=== PATIENT | male | born 1970 | race Caucasian/White ===

== ENCOUNTER 2017-01-11 07:25 | Day surgery (SDC) | payer MEDICARE, OTHER ==
[~2017-01-11 07:25] MED LIST: LACTATED RINGERS 1,000 ML IV SCH; LIDOCAINE 1% 20 ML VIAL (10MG/ML) FOR IV START INTRADERMA PRN
[2017-01-11 07:54] VITALS: TEMP 97.9
[2017-01-11 08:02] LABS: Glucose,Whole Blood 85 mg/dL (75-99)
[2017-01-11] MEDS ORDERED: PROPOFOL 10 MG/ML 20 ML VIAL IV ONE (09:05)
[2017-01-11] MEDS ORDERED: ePHEDrine 50 MG/ML 1 ML AMP ONE (09:05)
[2017-01-11] MEDS ORDERED: LACTATED RINGERS 1,000 ML IV ONE (09:39)
--- NOTE | 2017-01-11 09:55 | P.PCN ---
Date of Procedure: 01/11/17 Procedure(s) Performed: Procedures: 1. Esophagogastroduodenoscopy and biopsy. 2. Colonoscopy and polypectomy. Preoperative diagnosis: Dysphagia and change in bowel habits. Postoperative diagnosis: 1. Small sliding hiatal hernia with no obvious esophagitis or complicated reflux disease. 2. Gastritis. 3. Multiple colon polyps snared but no large polyps or cancer. Preparation: HalfLytely prep. Sedation: Was provided by anesthesia Brief clinical history: The patient is a 46-year-old male who is referred for this evaluation because of issues with dysphagia and change in bowel habits. The patient was diagnosed in July 2016 with head and neck cancer for which he received chemotherapy and radiation therapy which was completed the first week of October 2016. The patient has been having issues swallowing as well as dry mouth secondary to the radiation. He lost a total of 75 pounds. He had issues with change in bowel habits, in part related to his inability to eat. This evaluation is to assess for radiation esophageal strictures or other pathology and colon neoplasia or other pathology. Procedure: With the patient on his left lateral decubitus position and after informed consent and adequate sedation, I passed the Olympus-GIF 160 video upper endoscope through the cricopharyngeus down the esophagus. GE junction was around 40-41 cm from the incisors and there was a very small sliding hiatal hernia. There was no obvious esophagitis or strictures. No exudates or other pathology to account for his symptoms. The endoscope was then passed into the stomach which was insufflated with air and inspected in detail including the retroflex view in the cardia. There was mottling and erythema as well as some friability, most obvious in the antrum, but no ulcers or erosions. Pyloric channel did not show any ulcers. Duodenal bulb, post bulbar area and descending duodenum showed minimal erythema. I obtained multiple biopsies from the duodenum, antrum and esophagus then the endoscope was withdrawn and I proceeded with the colonoscopy. Perianal area did not show any fissures or fistulas. There were no masses felt on digital rectal examination. The Olympus CFQ 160L video colonoscope was then inserted in the rectum in the usual fashion and advanced to the cecum. There were multiple small polyps, around 10 total, which were snared and fulgurated. One was in the right colon and 2 in the distal sigmoid and the remainder where in the proximal sigmoid. All retrieved polyps were sent to pathology. No large polyps or cancer. No obvious diverticular disease or other pathology. I retroflexed endoscope in the rectum before the endoscope was withdrawn. The patient tolerated the procedure well. Plan: The patient was reassured. Will await pathology results. I anticipate repeating his colonoscopy in 3 years. He will follow up with you as planned and I will be happy to see in the office if his symptoms persist.
[2017-01-11 10:03] VITALS: BP 116/82; PULSE 93; RESP 18
== END 2017-01-11 10:32 | disposition home or self-care (01) ==
LOC: ORWHC2ENDO 07:25
DX: K20.0 Eosinophilic esophagitis (principal); B96.81 Helicobacter pylori [H. pylori] as the cause of diseases classified elsewhere; K29.50 Unspecified chronic gastritis without bleeding; D12.2 Benign neoplasm of ascending colon; D12.5 Benign neoplasm of sigmoid colon; K44.9 Diaphragmatic hernia without obstruction or gangrene; I10 Essential (primary) hypertension; R68.2 Dry mouth, unspecified; G47.33 Obstructive sleep apnea (adult) (pediatric); E78.5 Hyperlipidemia, unspecified; J44.9 Chronic obstructive pulmonary disease, unspecified; Z79.82 Long term (current) use of aspirin; Z79.899 Other long term (current) drug therapy; Z88.5 Allergy status to narcotic agent; Z91.09 Other allergy status, other than to drugs and biological substances
CPT/HCPCS: 88305; 88342; 45385; 43239; J2704

== ENCOUNTER → 2017-01-13 | Outpatient (CLI) | payer MEDICARE, OTHER ==
--- NOTE | 2017-01-16 09:38 | PE ---
Nuclear medicine PET/CT HISTORY: Head and neck carcinoma Patient received 14.2 mCi F-18 FDG intravenously and delayed scanning performed from the skull base t hrough the thighs. Correlation of previous nuclear medicine PET/CT 22 July 2017 Neck and chest: The right-sided cervical adenopathy with hypermetabolic uptake has resolved in the interval. No adeno reagan or suspicious hypermetabolic uptake is evident. There is no evident lung mass. There is a small subcutaneous nodule present in the left back which show some hypermetabolic uptake likely related to a sebaceous cyst. Abdomen pelvis: No evident adenopathy. No mass. No suspicious hypermetabolic uptake. Osseous structures show postop change in the lower lumbar spine. Some hypermetabolic uptake associate d at the surgical site at L4 vertebral body. IMPRESSION: Hypermetabolic uptake has resolved in the neck. Hypermetabolic uptake seen in the lumbar spine is related to patient's surgery and is an interval finding, could be related to infection. Cons ider additional workup.
== END | disposition home or self-care (01) ==
LOC: RADPETMAIN 08:17
PROVIDERS: ATTEND Internal Medicine Hematology & Oncology
DX: C80.0 Disseminated malignant neoplasm, unspecified (principal)
CPT/HCPCS: 78815; A9552

== ENCOUNTER → 2017-04-07 | Outpatient (CLI) | payer MEDICARE, OTHER ==
--- NOTE | 2017-04-09 11:43 | PE ---
Nuclear medicine PET/CT HISTORY: Head and neck carcinoma Patient received 13.5 mCi F-18 FDG and delayed scanning was performed from the skull base through the mid thighs. Localization and attenuation correction CT scan was performed. Small [id number] imagi ng performed of the head and neck. Correlation to prior exam dated 01/13/2017 Head and neck: There is no evident adenopathy. Uptake along the oropharynx, pharyngeal soft tissues s hows a similar distribution prior exam. Uptake at the skin surface of the nose anteriorly is somewhat more prominent, correlate for superficial inflammatory change of the nose. No suspicious hypermetabo lic uptake is suspected. CHEST: Unremarkable. No significant interval change. Changes of probable gynecomastia. No evident lizzie g nodule or adenopathy, no suspicious hypermetabolic uptake Abdomen pelvis: No retroperitoneal adenopathy. Low dense focus within the liver anterior aspect at th e level of the falciform ligament is a stable finding, there is no suspicious hypermetabolic uptake. Uptake at the level of the anus is thought to be physiologic and stable. Osseous structures are stable. IMPRESSION: Stable exam. No recurrence is evident.
== END | disposition home or self-care (01) ==
LOC: RADPETMAIN 13:59
PROVIDERS: ATTEND Radiology Diagnostic Radiology
DX: C01 Malignant neoplasm of base of tongue (principal); C77.0 Secondary and unspecified malignant neoplasm of lymph nodes of head, face and neck
CPT/HCPCS: 78815; A9552

== ENCOUNTER → 2017-05-16 | Outpatient (CLI) | payer MEDICARE, OTHER ==
--- NOTE | 2017-05-16 10:17 | CT ---
EXAMINATION TYPE: CT abdomen pelvis w con DATE OF EXAM: 05/16/2017 COMPARISON: Prior nuclear medicine PET/CT 04/07/2017 HISTORY: Generalized abdominal pain CT DLP: 732.10 mGycm Automated exposure control for dose reduction was used. TECHNIQUE: Helical acquisition of images from the lung bases through the pelvis have been completed. CONTRAST: Performed with Oral Contrast and with IV Contrast, patient injected with 100 ml mL of Omnipaque 300. FINDINGS: LUNG BASES: No significant abnormality is appreciated. AORTA: No significant abnormality is appreciated. LIVER/GB: No significant abnormality is appreciated. PANCREAS: No significant abnormality is seen. SPLEEN: No significant abnormality is seen. ADRENALS: No significant abnormality is seen. KIDNEYS: No significant abnormality is seen. REPRODUCTIVE ORGANS: Prostate shows associated calcification and may be enlarged. BOWEL: Large amount of retained fecal debris present throughout the distribution of the colon. Quest ionable areas of mucosal thickening, narrowing in the rectosigmoid colon. FREE AIR: No Free Air visible. ASCITES: None visible. PELVIC ADENOPATHY: None visualized. RETROPERITONEAL ADENOPATHY: No Retroperitoneal Adenopathy visible. URINARY BLADDER: Bladder wall is somewhat thickened possibly due to chronic outlet obstruction. Otoniel elate to exclude cystitis. OSSEOUS STRUCTURES: Degenerative disc changes are present in the visualized spine. Postop changes ar e noted in the lumbar spine. There is some associated facet arthropathy. IMPRESSION: CORRELATE FOR POSSIBLE FECAL STASIS, DIFFICULT TO EXCLUDE A MUCOSAL LESION WITHIN THE RECTOSIGMOID CO CHELI, CONSIDER FLEXIBLE SIGMOIDOSCOPY. POSTOP CHANGES. ADDITIONAL FINDINGS ABOVE.
== END | disposition home or self-care (01) ==
LOC: RADCTMAIN 07:08
PROVIDERS: ATTEND Surgery
DX: R10.84 Generalized abdominal pain (principal); Z98.890 Other specified postprocedural states
CPT/HCPCS: 74177; Q9967

== ENCOUNTER → 2017-10-02 | Outpatient (CLI) | payer MEDICARE, OTHER ==
[2017-10-02 10:19] LABS: Blood Urea Nitrogen 13 mg/dL (9-20)
--- NOTE | 2017-10-02 10:51 | CT ---
EXAMINATION TYPE: CT brain wo/w con DATE OF EXAM: 10/02/2017 COMPARISON: NONE HISTORY: Headache CT DLP: 1999.6mGycm CONTRAST: CT scan of the head is performed with IV Contrast, patient injected with 100 mL of Omnipaque 300. Unenhanced followed by contrast enhanced CT of the brain is submitted for evaluation. The ventricles are midline. There is no evidence for intracranial hemorrhage or extra-axial collection. No mass e ffects are identified. Visualized bony calvarium is intact. Contrast is administered and no enhanci ng lesions are detected. No pathologic enhancement is identified. If symptoms persist consider MRI. IMPRESSION: No significant abnormality appreciated.
== END | disposition home or self-care (01) ==
LOC: RADCTMAIN 09:15
PROVIDERS: ATTEND Family Medicine
DX: R51 Headache (principal)
CPT/HCPCS: 82565; 84520; 70470; 36415; Q9967

== ENCOUNTER → 2017-10-24 | Outpatient (CLI) | payer MEDICARE, OTHER ==
--- NOTE | 2017-10-24 09:06 | XR ---
EXAMINATION TYPE: XR cervical spine 5 views comp, XR thoracic spine 3 views, XR lumbar spine 3V DATE OF EXAM: 10/24/2017 COMPARISON: NONE HISTORY: 47-year-old male with entire spine pain FINDINGS: Cervical spine: No significant bony spondylotic neuroforaminal narrowing on either side. There may be very mild facet arthropathy. No predental space widening or prevertebral soft tissue swelling. Alignment is maintain ed. Normal odontoid view. Thoracic spine: Gentle dextroconvex curvature centered along the mid to lower thoracic spine. 12 rib-bearing thoracic vertebral bodies. All pedicles are visualized. Mild endplate spondylosis mid to lower thoracic spine . Vertebral body heights are maintained. Alignment is preserved. Lumbar spine: There appear to be 6 lumbar type vertebral bodies. There is posterior and interbody fusion from L4 th rough L6 levels and partial laminectomies. Vertebral body heights are preserved. No evident complicat ion of the orthopedic hardware. IMPRESSION: 1. Cervical spine: Mild scattered facet arthropathy. No significant bony neuroforaminal narrowing or malalignment. 2. Thoracic spine: Gentle dextroconvex curvature could be positional, due to muscle spasm, or seconda ry to a slight scoliosis. There is mild endplate spondylosis mid to lower thoracic spine. 3. Lumbar spine: 6 lumbar type vertebral bodies with L4 to L6 posterior and interbody fusion. Vertebr al body heights are maintained.
== END | disposition home or self-care (01) ==
LOC: RADXRMAIN 08:36
PROVIDERS: ATTEND Family Medicine
DX: M46.92 Unspecified inflammatory spondylopathy, cervical region (principal); M47.814 Spondylosis without myelopathy or radiculopathy, thoracic region; M43.8X4 Other specified deforming dorsopathies, thoracic region; M41.84 Other forms of scoliosis, thoracic region; Z98.1 Arthrodesis status
CPT/HCPCS: 72050; 72070; 72100

== ENCOUNTER → 2018-07-04 | Outpatient (CLI) | payer MEDICARE, OTHER ==
--- NOTE | 2018-07-04 13:25 | XR ---
EXAMINATION TYPE: XR shoulder complete RT DATE OF EXAM: 07/04/2018 CLINICAL HISTORY: pain TECHNIQUE: Three views of the right shoulder are obtained. COMPARISON: None FINDINGS: There is no acute fracture/dislocation evident. The acromioclavicular and glenohumeral mulu int spaces appear within normal limits. The visualized ribs are intact and unremarkable. IMPRESSION: 1. There is no acute fracture or dislocation. ICD 10 NO FRACTURE, INITIAL EVALUATION
--- NOTE | 2018-07-04 13:40 | XR ---
EXAMINATION TYPE: XR thoracic spine 2V DATE OF EXAM: 07/04/2018 CLINICAL HISTORY: pain TECHNIQUE: Frontal, lateral, and swimmer's view of thoracic spine are obtained. COMPARISON: None. FINDINGS: Thoracic spine show satisfactory alignment without evidence of acute fracture or dislocatio n. Vertebral body heights are preserved. Disc spaces are well preserved. Visualized ribs are unrem arkable. IMPRESSION: No acute fracture or dislocation is seen in the thoracic spine. ICD 10 NO FRACTURE, INIT IAL EVALUATION
--- NOTE | 2018-07-04 13:42 | XR ---
EXAMINATION TYPE: XR lumbar spine 2 or 3V DATE OF EXAM: 07/04/2018 CLINICAL HISTORY: October 24, 2017 TECHNIQUE: Three views of the lumbar spine are submitted. COMPARISON: None. FINDINGS: Postoperative changes of fusion at L4-5 and L5-S1. Intervertebral spacers are in place. Pedicular scr ews noted. Alignment is anatomic. Remaining levels are within normal limits. IMPRESSION: Stable postoperative changes of the lumbar spine. ICD 10 NO FRACTURE, INITIAL EVALUATION
== END | disposition home or self-care (01) ==
LOC: RADXRMAIN 12:36
PROVIDERS: ATTEND Family Medicine
DX: M24.811 Other specific joint derangements of right shoulder, not elsewhere classified (principal); M54.6 Pain in thoracic spine; M54.5 Low back pain; G89.29 Other chronic pain; Z98.1 Arthrodesis status
CPT/HCPCS: 72070; 72100

== ENCOUNTER → 2018-07-15 | Outpatient (CLI) | payer MEDICARE, OTHER ==
--- NOTE | 2018-07-15 10:15 | XR ---
EXAMINATION TYPE: XR Hip Bilateral and AP pelvis DATE OF EXAM: 07/15/2018 COMPARISON: None HISTORY: Pain TECHNIQUE: A single AP view of the pelvis is obtained. Two views of the bilateral hip are obtained. FINDINGS: Postsurgical change overlying the lower lumbar spine. Vascular calcifications in the pelvis. Moderate concentric narrowing of the joint space of the hips bilaterally. Bilateral hypertrophic change of th e acetabulum. Nonspherical morphology of the femoral head can be associated with femoral acetabular i mpingement. The SI joints symmetric. IMPRESSION: 1. Bilateral moderate arthropathy of the hips with no erosive changes. Correlate for femoral acetabul ar impingement.
== END | disposition home or self-care (01) ==
LOC: RADXRMAIN 09:33
PROVIDERS: ATTEND Midwife
DX: M16.0 Bilateral primary osteoarthritis of hip (principal)
CPT/HCPCS: 73521

== ENCOUNTER → 2018-08-09 | Outpatient (CLI) | payer MEDICARE, OTHER ==
--- NOTE | 2018-08-09 13:28 | MR ---
EXAMINATION TYPE: MR shoulder RT wo con DATE OF EXAM: 08/09/2018 12:26 PM COMPARISON: NONE HISTORY: Right shoulder pain TECHNIQUE: Multiplanar multispin echo imaging of the right shoulder was performed. FINDINGS: Rotator cuff : Heterogeneity and thickening of the supraspinatus tendon compatible chronic tendinopat hy without partial or complete tear. There is a small undersurface tear involving the infraspinatus t endon. Subscapularis tendon is intact. Bursa: No bursal effusion or thickening is seen. Musculature: There is no muscular tear, contusion, or atrophy. Acromioclavicular joint : There are mild degenerative changes of the acromioclavicular joint. There is no anterior or lateral acromial downsloping. Osseous structures : There are no fractures or regions of abnormal bone marrow signal intensity. Long biceps tendon : The biceps tendon is normally situated within the bicipital groove. Increased si gnal involving the biceps anchor intra-articularly may reflect tendinosis or partial tear. Glenohumeral Joint fluid : There is no glenohumeral joint effusion. Cartilage and Bone : No focal hyaline cartilage defects are noted. No Hill-Sachs, reverse Hill-Sachs, or bony Bankart lesions are seen. Labrum : There are no SLAP or soft tissue Bankart lesions. No paralabral cysts are seen. OTHER FINDINGS : Glenoid bone island identified. IMPRESSION: 1. There is a small undersurface tear involving the infraspinatus tendon. 2. Chronic tendinopathy supraspinatus tendon. 3.Increased signal involving the biceps anchor intra-articularly may reflect tendinosis or partial te ar.
--- NOTE | 2018-08-09 13:48 | MR ---
EXAMINATION TYPE: MR greenberg/grazyna wo/w con DATE OF EXAM: 08/09/2018 1:20 PM COMPARISON: NONE HISTORY: cervicalgia, thoracic spine pain CONTRAST: The patient was injected with 9.5 mL intravenous Gadavist gadolinium contrast. Multiplanar MultiSpin echo imaging of the cervical spine was performed. C2-C3: No evidence for degenerative disc disease. No disc bulge/herniation or protrusion. No Canal stenosis. Foramina are patent bilaterally. C3-C4: No evidence for degenerative disc disease. No disc bulge/herniation or protrusion. No Canal stenosis. Foramina are patent bilaterally. C4-C5: Mild disc desiccation. Posterocentral disc bulge mildly degree. No herniation or central steno sis. No foraminal encroachment appreciated. C5-C6: Mild disc desiccation noted. Subligamentous right paracentral disc herniation mildly effaces t he ventral thecal sac. No evidence for cord contact or central stenosis. No evidence for foraminal en croachment. C6-C7:No evidence for degenerative disc disease. No disc bulge/herniation or protrusion. No Canal s tenosis. Foramina are patent bilaterally. C7-T1: No evidence for degenerative disc disease. No disc bulge/herniation or protrusion. No Canal stenosis. Foramina are patent bilaterally. No cervical spine fracture. There is normal alignment. Cervical spinal cord is of normal signal. C raniovertebral junction relationships are within normal limits. No pathologic enhancement. No pathol ogic enhancement appreciated. IMPRESSION: 1. Right paracentral subligamentous disc herniation has mildly progressed in the interval. EXAMINATION TYPE: MR brunner wo/w con DATE OF EXAM: 08/09/2018 1:20 PM COMPARISON: NONE HISTORY: cervicalgia, thoracic spine pain Multiplanar MultiSpin echo imaging of the thoracic spine was performed. Disc spaces: Mild decreased signal and loss of height at T1-T2, T7-T8, T8-T9 and T9-T10. Mild disc bu lging at T1-T2 and T9-T10. Left paracentral disc bulge with small annular tear T7-T8. Mild to moderat e posterior central disc bulge at T8-T9. No kyleigh herniation. Spinal canal: No evidence for canal stenosis. No intrinsic or extrinsic lesion. Thoracic spinal cord: Thoracic spinal cord is of normal caliber and signal. Paraspinal soft tissues: No evidence for paraspinal mass. No destructive lesions seen. Vertebral segments: No evidence for fracture or bony lesion. No pathologic enhancement identified. IMPRESSION: 1. Degenerative disc disease with disc bulging as noted.
== END | disposition home or self-care (01) ==
LOC: RADMRIMAIN 11:42
PROVIDERS: ATTEND Family Medicine
DX: S46.811A Strain of other muscles, fascia and tendons at shoulder and upper arm level, right arm, initial encounter (principal); M75.81 Other shoulder lesions, right shoulder; M50.222 Other cervical disc displacement at C5-C6 level; M51.24 Other intervertebral disc displacement, thoracic region; M51.34 Other intervertebral disc degeneration, thoracic region
CPT/HCPCS: 72156; 72157; 73221; A9585

== ENCOUNTER → 2023-12-19 | Outpatient (CLI) | payer MEDICARE ==
--- NOTE | 2023-12-19 13:22 | XR ---
EXAMINATION TYPE: XR chest 2V DATE OF EXAM: 12/19/2023 COMPARISON: 06/22/2016 INDICATION: Pneumonia coughing up mucus chest pain TECHNIQUE: Frontal and lateral views of the chest are obtained. FINDINGS: The heart size is normal. The pulmonary vasculature is normal. The lungs are clear. Tracheobronchial tree as visualized appears normal. IMPRESSION: 1. No acute pulmonary process.
== END | disposition home or self-care (01) ==
LOC: RADXRMAIN 11:41
PROVIDERS: ATTEND Family Medicine
DX: J18.9 Pneumonia, unspecified organism (principal)
CPT/HCPCS: 71046

== ENCOUNTER 2025-02-25 09:04 | Day surgery (SDC) | payer MEDICARE ==
[2025-02-24 12:16] VITALS: BMI 32.4
--- NOTE | 2025-02-25 08:44 | P.GSHP ---
History of Present Illness H&P Date: 02/25/25 CHIEF COMPLAINT: Dysphagia and colon screen HISTORY OF PRESENT ILLNESS: The patient is a 54-year-old male who presents with dysphagia, gastroesophageal reflux disease and need for colon screen. Upper and lower endoscopy were offered for further evaluation and management. PAST MEDICAL HISTORY: Please see list. PAST SURGICAL HISTORY: Please see list. MEDICATIONS: Please see list. ALLERGIES: Please see list. SOCIAL HISTORY: No illicit drug use FAMILY HISTORY: No reports of Crohn disease or ulcerative colitis. REVIEW OF ORGAN SYSTEMS: CONSTITUTIONAL: No reports of fevers or chills. GI: Denies any blood in stools or constipation. PHYSICAL EXAM: VITAL SIGNS: Stable GENERAL: Well-developed pleasant in no acute distress. HEENT: No scleral icterus. Extraocular movements grossly intact. Moist buccal mucosa. NECK: Supple without lymphadenopathy. CHEST: Unlabored respirations. Equal bilateral excursions. CARDIOVASCULAR: Regular rate and rhythm. Distal 2+ pulses. ABDOMEN: Soft, nondistended. MUSCULOSKELETAL: No clubbing, cyanosis, or edema. ASSESSMENT: 1. Dysphagia and gastroesophageal reflux disease 2. Colon screen. PLAN: 1. Recommend proceeding with an upper and lower endoscopy Past Medical History Past Medical History: Cancer, COPD, Diabetes Mellitus, Hyperlipidemia, Osteoarthritis (OA), Sleep Apnea/CPAP/BIPAP Additional Past Medical History / Comment(s): very hard time swallowing, has to cut food/meat into very small pieces,irregular bowel movements, MIGRAINES, HERNIATED DISC, USES C-PAP, dx. w/neck cancer 2015-had chemo & radiation History of Any Multi-Drug Resistant Organisms: None Reported Past Surgical History: Adenoidectomy, Back Surgery, Orthopedic Surgery Additional Past Surgical History / Comment(s): back fusion x 3, moon carpal tunnel, tubes in ears. Past Anesthesia/Blood Transfusion Reactions: No Reported Reaction Additional Past Anesthesia/Blood Transfusion Reaction / Comment(s): no hx blood transfusion Smoking Status: Former smoker - Past Family History Mother Family Medical History: Cancer Additional Family Medical History / Comment(s): . Father History Unknown: Yes Medications and Allergies Home Medications Medication Instructions Recorded Confirmed Type Albuterol Inhaler [Ventolin Hfa 2 puff INHALATION Q6H PRN 12/20/15 02/24/25 Hist ory Inhaler] Fluticasone Propion/Salmeterol 1 puff INHALATION BID PRN 04/11/16 06/17/25 History [Advair 250-50 Diskus] glipiZIDE [Glipizide] 5 mg PO DAILY 04/20/16 02/24/25 History Atorvastatin [Lipitor] 20 mg PO DAILY 07/19/16 02/24/25 History ARIPiprazole [Abilify] 10 mg PO QAM 02/24/25 02/24/25 History Lactulose 10 gm PO BID 02/24/25 02/24/25 History Levothyroxine Sodium [Synthroid] 175 mcg PO QAM 02/24/25 02/24/25 History Morphine Sulfate [Ms Contin] 30 mg PO Q12HR 02/24/25 02/24/25 History buPROPion HCL [buPROPion HCL Xl] 300 mg PO QAM 02/24/25 02/24/25 History Allergies Allergy/AdvReac Type Severity Reaction Status Date / Time isosorbide Allergy headache, Verified 02/24/25 12:09 sensitive to light suvorexant [From [facility]] Allergy Hallucinati Verified 02/24/25 12:09 ons tramadol HCl [From [facility]] AdvReac Severe migraine Verified 02/24/25 12:09 headache
[2025-02-25 09:47] VITALS: TEMP 97.8
[2025-02-25] MEDS: IV FLUID CONTINUATION 1,000 ML IV ONE ×2 (09:47→09:59)
[2025-02-25] MEDS: LACTATED RINGERS 1,000 ML IV SCH (09:59)
[2025-02-25 10:04] LABS: Glucose,Whole Blood 126 mg/dL (70-110)
[2025-02-25] MEDS ORDERED: PROPOFOL 10 MG/ML 20 ML VIAL IV ONE (10:28)
[2025-02-25 11:10] VITALS: RESP 16
[2025-02-25 11:41] VITALS: BP 138/87; PULSE 76
--- NOTE | 2025-03-05 10:05 | P.PCN ---
Date of Procedure: 02/25/25 Description of Procedure: PREOPERATIVE DIAGNOSIS: Personal history colon polyps POSTOPERATIVE DIAGNOSIS: Poor prep with solid stool Constipation OPERATION: Colonoscopy to sigmoid colon, aborted due to poor prep SURGEON: Neha Warner MD. ANESTHESIA: MAC. INDICATIONS: The patient is a 54-year-old male who presents with history of colon polyps. Colonoscopy over 5 years ago. Benefits and risks were described and informed consent was obtained. DESCRIPTION OF PROCEDURE: The patient had undergone bowel prep. The patient had been brought into the endoscopy room and laid in the left lateral decubitus position. After adequate intravenous sedation, the rectum was examined with 2% lidocaine jelly. No external hemorrhoids were encountered. The rectal tone was within normal limits. No lesions were palpated in the rectal vault. An Olympus colonoscope was inserted and sigmoid colon were liquid stools were found. Solid stool was obstructing passage of the scope beyond the mid sigmoid colon. The procedure was aborted. No inflamed hemorrhoids were identified. The colonoscope was removed. Withdrawal time was over 6 minutes. FINDINGS: [place]ch[place] preparation quality scale 5 (1-5) No external prolapsed hemorrhoids. Scope advanced to the sigmoid colon 30 cm from the anal verge Poor prep with solid stool to mid sigmoid colon, nondiagnostic and aborted RECOMMENDATIONS: Recommend prolonged bowel prep 3-5 days. Repeat colonoscopy in 3 months, May 2025 Plan - Discharge Summary Discharge Rx Participant: No New Discharge Prescriptions: Continue Fluticasone Propion/Salmeterol [Advair 250-50 Diskus] 1 puff INHALATION BID PRN PRN Reason: sob Albuterol Inhaler [Ventolin Hfa Inhaler] 2 puff INHALATION Q6H PRN PRN Reason: Shortness Of Breath glipiZIDE [Glipizide] 5 mg PO DAILY Atorvastatin [Lipitor] 20 mg PO DAILY ARIPiprazole [Abilify] 10 mg PO QAM Levothyroxine Sodium [Synthroid] 175 mcg PO QAM Lactulose 10 gm PO BID buPROPion HCL [buPROPion HCL Xl] 300 mg PO QAM Morphine Sulfate [Ms Contin] 30 mg PO Q12HR Discharge Medication List Albuterol Inhaler [Ventolin Hfa Inhaler] 2 puff INHALATION Q6H PRN 12/20/15 [History] Fluticasone Propion/Salmeterol [Advair 250-50 Diskus] 1 puff INHALATION BID PRN 12/20/15 [History] glipiZIDE [Glipizide] 5 mg PO DAILY 04/20/16 [History] Atorvastatin [Lipitor] 20 mg PO DAILY 07/19/16 [History] ARIPiprazole [Abilify] 10 mg PO QAM 02/24/25 [History] Lactulose 10 gm PO BID 02/24/25 [History] Levothyroxine Sodium [Synthroid] 175 mcg PO QAM 02/24/25 [History] Morphine Sulfate [Ms Contin] 30 mg PO Q12HR 02/24/25 [History] buPROPion HCL [buPROPion HCL Xl] 300 mg PO QAM 02/24/25 [History] Follow up Appointment(s)/Referral(s): Neha Warner MD [STAFF PHYSICIAN] - 03/24/25 2:00 pm Patient Instructions/Handouts: *Surgery [facility] - (Anesthesia) Discharge Instructions Outpatient Surgery, Constipation (DC), Esophageal Dilation (DC) Activity/Diet/Wound Care/Special Instructions: Salt water gargle twice daily for 2 days. Follow up in office due to poor prep. Discharge Disposition: HOME SELF-CARE
--- NOTE | 2025-03-05 10:08 | P.PCN ---
Date of Procedure: 02/25/25 Description of Procedure: PREOPERATIVE DIAGNOSIS: Gastroesophageal reflux disease Dysphagia POSTOPERATIVE DIAGNOSIS: Upper esophageal stenosis Duodenitis Gastritis OPERATION: Esophagogastroduodenoscopy with rigid dilator over the guidewire 57 Fr with dilation Esophagogastroduodenoscopy with cold forceps biopsies stomach/antrum, esophagus, duodenum SURGEON: Neha Warner MD ANESTHESIA: MAC. INDICATIONS: The patient is a 54-year-old male who presents with dysphagia. Benefits and risks of the procedure were described. Informed consent was obtained. DESCRIPTION: The patient was brought into the endoscopy suite and laid in the left lateral decubitus position. After a timeout was confirmed, the procedure was initiated. An Olympus gastroscope was passed into the posterior oropharynx where an upper esophageal stenosis was identified. The scope was passed down to the distal esophagus. To address the upper esophageal stenosis, rigid dilator over guidewire was selected. Next using an [place] rigid dilator, a guidewire was placed through the gastroscope. Next the scope was withdrawn. A 57-Uzbek rigid [place] dilator was passed carefully along the posterior oropharynx to 45 cm and left in place for 2-3 minutes stretch. The dilator was withdrawn including the guidewire. The scope was reentered along the posterior oropharynx with no findings of full- thickness tear of the upper esophageal sphincter. Additional findings below. Within the stomach, acute gastritis identified along the body of the stomach with cold forceps biopsies obtained. The lower esophageal valve was evaluated with Hill grade 2 lower esophageal valve. LA grade B erosive esophagitis was identified. No full-thickness injury was encountered. The GI tract was desufflated. The patient tolerated the procedure well. FINDINGS: Upper esophageal stenosis dilated 57-Uzbek rigid dilator Diaphragmatic hiatus at 42 cm from the incisors Squamocolumnar junction 42 cm from the incisors. Gastritis along the gastric body and fundus cold forceps biopsies obtained Chronic gastritis biopsies obtained Duodenum with duodenitis, biopsies obtained LA grade B erosive esophagitis, biopsies obtained Hill grade 2 lower esophageal valve. RECOMMENDATIONS: Repeat upper endoscopy as needed
== END 2025-02-25 12:24 | disposition home or self-care (01) ==
LOC: ORWHC2ENDO 09:04
PROVIDERS: ATTEND Surgery Plastic and Reconstructive Surgery
DX: Z12.11 Encounter for screening for malignant neoplasm of colon (principal); K29.50 Unspecified chronic gastritis without bleeding; K21.00 Gastro-esophageal reflux disease with esophagitis, without bleeding; K22.89 Other specified disease of esophagus; K22.2 Esophageal obstruction; K29.80 Duodenitis without bleeding; K44.9 Diaphragmatic hernia without obstruction or gangrene; Z86.0100 Personal history of colon polyps, unspecified; K59.00 Constipation, unspecified; J44.9 Chronic obstructive pulmonary disease, unspecified; E78.5 Hyperlipidemia, unspecified; E11.9 Type 2 diabetes mellitus without complications; M19.90 Unspecified osteoarthritis, unspecified site; G47.30 Sleep apnea, unspecified; G43.909 Migraine, unspecified, not intractable, without status migrainosus; Z90.89 Acquired absence of other organs; Z98.890 Other specified postprocedural states; Z87.891 Personal history of nicotine dependence; Z79.899 Other long term (current) drug therapy; Z79.890 Hormone replacement therapy; Z79.84 Long term (current) use of oral hypoglycemic drugs; Z88.8 Allergy status to other drugs, medicaments and biological substances; Z88.5 Allergy status to narcotic agent
CPT/HCPCS: 43248; 88305; 43239; J2704; G0104; 45378